=== PATIENT | female | born 1980 | race Caucasian/White ===

== ENCOUNTER → 2023-12-07 18:45 | Outpatient (REF) | payer OTHER, SELFPAY | LOC: WDC 18:45 | PROVIDERS: ATTENDING PHYSICIAN Family Medicine | DX: Z12.31 Encounter for screening mammogram for malignant neoplasm of breast (principal) | CPT/HCPCS: 77063; 77067 ==

== ENCOUNTER → 2024-08-26 13:49 | Outpatient (REF) | payer OTHER, SELFPAY | LOC: RCS 13:49 | PROVIDERS: ATTENDING PHYSICIAN Internal Medicine Cardiovascular Disease; FAMILY PHYSICIAN Family Medicine | DX: R00.2 Palpitations (principal) | CPT/HCPCS: 93306 ==

== ENCOUNTER → 2024-09-12 13:01 | Outpatient (REF) | payer OTHER, SELFPAY | LOC: WDC 13:01 | PROVIDERS: ATTENDING PHYSICIAN Obstetrics & Gynecology; FAMILY PHYSICIAN Family Medicine | DX: R92.30 Dense breasts, unspecified (principal) | CPT/HCPCS: 76641 ==

== ENCOUNTER → 2025-07-31 15:01 | Outpatient (REF) | payer OTHER, SELFPAY | LOC: HWWDC 15:01 | PROVIDERS: ATTENDING PHYSICIAN Family Medicine | DX: Z12.31 Encounter for screening mammogram for malignant neoplasm of breast (principal) | CPT/HCPCS: 77063; 77067 ==